=== PATIENT | male | born 1990 | race Caucasian/White ===

== ENCOUNTER 2023-02-14 08:30 | Outpatient (REF) | payer OTHER, SELFPAY ==
[2023-02-14 11:14] LABS: MANUAL DIFF FLAG NO
[2023-02-14 11:20] LABS: Basophils Percent Auto 0.3 % (0-2); Eosinophils Absolute Auto 0.1 X10*3/uL (0.0-0.4); Eosinophils Percent Auto 1.1 % (0-4); Hematocrit 44.4 % (42.0-52.0); Imm Gran Abs Auto 0.02 X10*3/uL (0.00-0.03); Imm Gran Pct Auto 0.3 % (0.0-0.4); Lymphocytes Absolute Auto 1.4 X10*3/uL (1.2-4.9); Lymphocytes Percent Auto 18.5 % (20-40); Mean Corpuscular HGB Conc 33.8 g/dl (31.0-36.0); Mean Corpuscular Hemoglobin 28.6 pg (27.0-33.0); Mean Corpuscular Volume 84.7 fL (80.0-98.0); Mean Platelet Volume 12.1 fL (9.4-12.4); Monocytes Absolute Auto 0.4 X10*3/uL (0.1-1.2); Neutrophils Absolute Auto 5.7 x10*3/uL (2.0-8.3); Neutrophils Percent Auto 74.8 % (45-73); Platelet Count 244 X10*3/uL (160-400); Red Blood Count 5.24 X10*6/uL (4.60-5.80); Red Cell Distribution Width 12.7 % (11.0-16.0); White Blood Count 7.6 X10*3/uL (4.8-10.8)
[2023-02-14 12:40] LABS: Alanine Aminotransferase 28 U/L (0-40); Albumin Level 4.6 g/dL (3.5-5.0); Alkaline Phosphatase 76 U/L (39-117); Anion Gap 9 (12-20); Aspartate Amino Transferase 22 U/L (5-37); Bilirubin Total 0.9 mg/dL (0.0-1.0); Blood Urea Nitrogen 9 mg/dL (9-16); Calcium 9.7 mg/dL (8.4-10.2); Carbon Dioxide 29 mmol/L (22-29); Chloride 107 mmol/L (96-108); Estimated Glomerular Filt Rate > 60; Glucose Random 91 mg/dL (60-115); Sodium 141 mmol/L (135-145); Total Protein 8.5 g/dL (6.5-8.0)
[2023-02-14 12:57] LABS: Thyroid Stimulating Hormone 0.89 uIU/mL (0.32-4.0)
== END 2023-02-14 08:31 | disposition home or self-care (01) ==
LOC: HO.HMGCLDS 08:30
PROVIDERS: Visit Provider Clinical Nurse Specialist Psychiatric/Mental Health, Adult
DX: Z79.899 Other long term (current) drug therapy (principal)
CPT/HCPCS: 36415; 80053; 84443; 85025

== ENCOUNTER 2023-02-14 08:43 | Outpatient (AMB) | payer OTHER, SELFPAY ==
--- NOTE | 2023-02-14 10:25 | MHC.OFFWIV ---
Intake Vital Signs 02/14/23 10:27 Height 5 ft 6 in Weight 170 lb BMI 27.4 BP 140/100 H Blood Pressure Location Lt brachial Position Sitting Pulse 98 Pulse Source Pulse Oximeter Temp 97.6 F Temp Source Temporal Artery Scan Pulse Oximetry (%) 97 Oxygen Delivery Method Room Air Intake Visit Reasons: [employer]/sore throat right side ear pain ([phone]) Intake Note: pt is here today for sore throat rt side ear pain stared 3 days ago Allergies No Known Allergies Allergy (Verified 02/14/23 10:26) HPI HPI Comments History of Present Illness Details Patient is a 33-year-old male in today for a sick visit. Patient comes in with symptoms of right-sided ear pain and sore throat started several days prior to arrival. He has used [id number] medicine with little relief. Describes right-sided ear pain as a feeling of fullness. Denies diminished hearing. Denies headache, chest pain, shortness a breath, vomiting, diarrhea. Review of Systems Const Details: Constitutional : No Weight loss, No Fever, No Chills, No Fatigue, No Malaise ENT/Mouth : Admits sore throat, No Rhinorrhea. Admits right sided ear pain. Eyes: No Eye Pain, No Swelling, No Redness Cardiovascular : No Chest Pain, No SOB, No Dyspnea on Exertion, No Orthopnea, No Edema, No Palpitations Respiratory : No Cough, No Sputum, No Wheezing Gastrointestinal : No Nausea, No Vomiting, No Diarrhea, No Constipation, No abdominal Pain, No Hematochezia, No Melena Neuro : No Weakness, No Numbness, No Dizziness, No Headache Psych : No Anxiety/Panic, No Depression Heme/Lymph: No Bruising, No Bleeding,No Lymphadenopathy Endocrine : No Polyuria, No Polydipsia All other systems reviewed and are negative Physical Exam Vital Signs: Last Vital Signs Temp 97.6 F 02/14/23 10:27 Pulse 98 02/14/23 10:27 BP 140/100 H 02/14/23 10:27 Pulse Ox 97 02/14/23 10:27 Oxygen Delivery Method Room Air 02/14/23 10:27 BMI result Body Mass Index 27.4 Const Other: Appearance: Alert.? Oriented X3.? No acute distress.? Head: Normocephalic, atraumatic, no step-offs or deformities Eyes: Pupils equal, round and reactive to light.? ENT: Pharynx erythema. Right TM intact with erythema and effusion, Left TM intact pearly brice. Neck: Normal inspection.? Neck supple.?Full ROM. CVS: Normal heart rate and rhythm.? Pulses normal.? Respiratory: No respiratory distress.? Breath sounds normal.? Neuro: Oriented X 3.? No motor deficit.? No sensory deficit. CN 2-12 intact Results AMB Rapid Strep AMB Rapid Strep Negative Last Edit by Chente Telles CMA on 02/14/23 10:54 Results Reviewed Results Reviewed: Laboratory Last Values Strep Scn [facility] Negative 02/14/23 10:53 Assessment & Plan Assessment & Plan (1) Right otitis media: Comment: Patient will be given Augmentin to be taken as prescribed. Patient has been educated on the side effects of these medication. States that he is agreeable to the plan. Code(s): H66.91 - Otitis media, unspecified, right ear Qualifiers: Otitis media type: unspecified Qualified Code(s): H66.91 - Otitis media, unspecified, right ear Plan: Take your medications as prescribed. If you were prescribed antibiotics today, it is important that you take your medication to their entirety, do not skip any doses, do not finish them early. Follow-up with your primary care provider this week. Return to the emergency department with new or worsening symptoms. Such as fevers, chills, chest pain, shortness of breath, nausea, vomiting, dizziness, headache, vision changes, lethargy In case of emergency call 911 Plan Patient should follow-up with PCP. Orders: Orders AMB Rapid Strep Screen Today Z13.9 - Encounter for screening, unspecified Medications: New amoxicillin-pot clavulanate 875-125 mg 1 tab PO Q12H 20 tabs 0RF prednisone 40 mg (2 x 20 mg) PO DAILY 10 tabs 0RF Coding Level of Care Code New Pt Level 3 (39866) Diagnoses Right otitis media, unspecified otitis media type H66.91 Otitis media type: unspecified Time Spent (min) 15
[2023-02-14 10:27] VITALS: BP 140/100; PULSE 98; TEMP 36.4; O2SAT 97; BMI 27.4
== END 2023-02-14 11:19 | disposition home or self-care (01) ==
PROVIDERS: Visit Provider Nurse Practitioner Primary Care
DX: J02.9 Acute pharyngitis, unspecified (principal)
CPT/HCPCS: 87880; 99203

== ENCOUNTER 2023-03-01 07:59 | Outpatient (AMB) | payer OTHER, SELFPAY ==
--- NOTE | 2023-03-01 08:10 | A.OFFPC_ITS ---
Vital Signs 03/01/23 08:11 Height 5 ft 6 in Weight 181 lb 2 oz BMI 29.2 BP 128/92 H Blood Pressure Location Rt brachial Position Sitting Pulse 91 Pulse Source Pulse Oximeter Pulse Oximetry (%) 97 Oxygen Delivery Method Room Air Intake Visit Reasons: Est Care/Requesting PE Intake Note: Pt is here est care Allergies No Known Allergies Allergy (Verified 03/01/23 08:26) Medication List - Last Reconciled 03/01/23 by HERNANDEZ Viera aripiprazole 2 mg PO DAILY Tobacco use date assessed: 03/01/23 Dental Screening Dental Screen Date: 03/01/23 Did you have a dental visit in the last 12 months?: No Did you have a dental problem in the last 6 months where you did not have access to dental care?: No Was dental information given to patient?: Patient has dentist HPI HPI Comments History of Present Illness Details Patient is a 33-year-old male here to establish care. He has no significant past medical history. Recently completed course antibiotics for otitis media of the right ear, he states the problem is resolved. Patient has no complaints at the time of appointment. [facility] Family History (Updated 03/01/23 @ 08:30 by HERNANDEZ Viera) Father Congestive heart failure Paternal Grandfather Congestive heart failure Social History Housing: Apartment Patient Tobacco Use Status: Never used Tobacco e-Cigarette/Vaping Use: Never Used Second Hand Smoke Exposure: No service: No Current occupational status: employed Current occupation: [employer] Current occupational exposures/hazards: No Cognitive needs: No Hearing needs: No Vision needs: No Questionnaire PHQ-9 Over the last 2 weeks, how often have you been bothered by any of the following problems? 1. Little interest or pleasure in doing things: not at all 2. Feeling down, depressed, or hopeless: not at all 3. Trouble falling or staying asleep, or sleeping too much: not at all 4. Feeling tired or having little energy: several days 5. Poor appetite or overeating: not at all 6. Feeling bad about yourself - or that you are a failure or have let yourself or your family down: not at all 7. Trouble concentrating on things, such as reading the newspaper or watching television: not at all 8. Moving or speaking so slowly that other people could have noticed. Or the opposite - being so fidgety or restless that you have been moving around a lot more than usual: not at all 9. Thoughts that you would be better off or of hurting yourself in some way: not at all Total score: 1 Depression Screening Interpretation: Negative Depression Screening Done: Yes 99284 - PHQ-9 Billing: Yes Source: Developed by Drs. Nilson Hayes, Marcie Nava, Asad Luo and colleagues, with an educational angela from [employer]. Thrive Questionnaire Date Thrive assessed: 03/01/23 I am a: Patient What is your living situation today?: I have a steady place to live Within the past 12 months, did the food you bought not last and you didn't have the money to get more?: Never true Within the past 12 months, did you worry whether your food would run out before you got money to buy more?: Never true Do you have trouble paying for medicines?: No Do you have trouble getting transportation to medical appointments?: No Do you have trouble paying your heating and electricity bill?: No Do you have trouble taking care of your child, family member or friend?: No Do you have trouble with day-to-day activities such as bathing, preparing meals, shopping, managing finances, etc.?: No Are you currently unemployed and looking for a job?: No Are you interested in more education?: No AUDIT C Alcohol Use Questionnaire (AUDIT-C) 1. How often do you have a drink containing alcohol?: 2-3 times a week 2. How many drinks containing alcohol do you have on a typical day when you are drinking?: 3 or 4 3. How often do you have six or more drinks on one occasion?: Less than monthly Total Score: 5 LORENZO-7 AMB Questionnaire LORENZO-7 Date LORENZO - 7 assessed: 03/01/23 Feeling nervous, anxious, or on edge: 0 = Not at all Not being able to stop or control worryin = Not at all Worrying too much about different things: 0 = Not at all Trouble relaxin = Not at all Being so restless that it is hard to sit still: 0 = Not at all Becoming easily annoyed or irritable: 0 = Not at all Feeling afraid as if something awful might happen: 0 = Not at all Total LORENZO-7 score (0-4 normal; 5-9 mild; 10-14 moderate; 15-21 severe): 0 Source: Developed by Drs. Nilson Hayes, Marcie Nava, Asad Luo and colleagues, with an educational angela from [employer]. LORENZO-7 Assessment Billing LORENZO-7 Assessment Tool: LORENZO-7 Assessment 97614 Review of Systems Const Details: Constitutional : No Weight loss, No Fever, No Chills, No Fatigue, No Malaise ENT/Mouth : No sore throat, No Rhinorrhea Eyes: No Eye Pain, No Swelling, No Redness Cardiovascular : No Chest Pain, No SOB, No Dyspnea on Exertion, No Orthopnea, No Edema, No Palpitations Respiratory : No Cough, No Sputum, No Wheezing Gastrointestinal : No Nausea, No Vomiting, No Diarrhea, No Constipation, No abdominal Pain, No Hematochezia, No Melena Genitourinary : No Dysuria, No Urinary Frequency, No Hematuria, Musculoskeletal : No joint pain, No Myalgias, No Joint Swelling Skin : No Skin Lesions, No rash Neuro : No Weakness, No Numbness, No Dizziness, No Headache Psych : No Anxiety/Panic, No Depression Heme/Lymph: No Bruising, No Bleeding,No Lymphadenopathy Endocrine : No Polyuria, No Polydipsia All other systems reviewed and are negative Physical exam (Primary Care) Vital Signs: Last Vital Signs Pulse 91 03/01/23 08:11 BP 128/92 H 03/01/23 08:11 Pulse Ox 97 03/01/23 08:11 Oxygen Delivery Method Room Air 03/01/23 08:11 Care Plan Goal for BP management: Vital signs reviewed stable. Patient will take blood pressure measurements at home BMI result Body Mass Index 29.2 Tobacco/Smoking Status: Tobacco use Status Tobacco use date assessed 03/01/23 03/01/23 08:18 Patient Tobacco Use Status Never used Tobacco 03/01/23 08:18 e-Cigarette/Vaping Use Never Used 03/01/23 08:18 Depression Screening Interpretation: Negative Const General: cooperative and no acute distress Orientation/consciousness: patient oriented x3 Limitations: no limitations HENMT Head: Yes normal to inspection Ears: TM's normal bilaterally Eyes General: appearance normal, both eyes and all related structures Sclerae: sclerae normal Pupils: Equal, round and reactive pupils present EOM: EOMs intact bilaterally Direct Ophthalmoscopy: normal light reflex and no photophobia Neck Neck: Yes normal visual inspection, Yes full ROM and Yes no lymphadenopathy Resp Auscultation: clear to auscultation bilaterally Cardio Rate: regular rate Rhythm: regular rhythm Heart sounds: S1 normal heart sound present and S2 normal heart sound present Neuro General: patient oriented x3 Cranial nerves: Yes Equal, round and reactive pupils present Assessment and Plan Assessment & Plan (1) Hypertension: Comment: Patient's blood pressure slightly elevated. Will have patient take blood pressure measurements at home. Patient would like to improve diet as an intervention. Will follow-up and 3 months with physical. Patient has been educated on signs of worsening symptoms and when to return to the office or when to present to the ER. Code(s): I10 - Essential (primary) hypertension Qualifiers: Hypertension type: unspecified Qualified Code(s): I10 - Essential (primary) hypertension Plan: Follow-up in 3 months. Coding Level of Care Code Est Pt Level 3 (36043) Diagnoses Hypertension, unspecified type I10 Hypertension type: unspecified Additional Codes LORENZO-7 Assessment Billing - LORENZO-7 Assessment Tool: LORENZO-7 Assessment [id number] ([id number]) Time Spent (min) 30
[2023-03-01 08:11] VITALS: BP 128/92; PULSE 91; O2SAT 97; BMI 29.2
== END 2023-03-01 08:43 | disposition home or self-care (01) ==
PROVIDERS: Visit Provider Nurse Practitioner Primary Care
DX: I10 Essential (primary) hypertension (principal); Z00.01 Encounter for general adult medical examination with abnormal findings
CPT/HCPCS: 99213; 99395